=== PATIENT | female | born 1965 | race Caucasian/White ===

== ENCOUNTER 2021-01-06 12:45 | Emergency (ER) | payer OTHER ==
[2021-01-06] MEDS ORDERED: FLUORESCEIN STRIPS 1 MG STRIP LEFT EYE STA (13:03)
[2021-01-06] MEDS ORDERED: PROPARACAINE 0.5% OPHTH DROPS 15 ML BTL LEFT EYE STA (13:03)
--- NOTE | 2021-01-06 13:37 | ED ---
General Adult HPI - General Chief complaint: Eye Problems Stated complaint: lt eye vision problem Time Seen by Provider: 01/06/21 13:03 Source: patient Mode of arrival: ambulatory Limitations: no limitations - History of Present Illness Initial comments: 55-year-old female without any significant past medical history presents to the emergency room for left sided blurry vision. Patient states 3 days ago she developed a revision in the left eye and a wedge-shaped from 9:00 to 12:00. She went to urgent care and was diagnosed with possible corneal abrasion, started on an antibiotic drops. Patient states that since that time and the blurriness has moved from 1:00 to 6 o'clock position. Patient denies any pain in the eye. Patient does wear contacts in that eye but has not worn them since Thursday. Patient denies any black curtains in the eye. States she can see through the blurry part but it is just not her normal vision. Denies headache.Patient has no other complaints at this time including shortness of breath, chest pain, abdominal pain, nausea or vomiting, headache, or visual changes. - Related Data Allergies Allergy/AdvReac Type Severity Reaction Status Date / Time Tetracyclines Allergy Unknown Verified 01/06/21 12:51 Review of Systems ROS Statement: Those systems with pertinent positive or pertinent negative responses have been documented in the HPI. ROS Other: All systems not noted in ROS Statement are negative. Past Medical History Past Medical History: No Reported History History of Any Multi-Drug Resistant Organisms: None Reported Past Surgical History: Orthopedic Surgery Past Psychological History: No Psychological Hx Reported Smoking Status: Former smoker Past Alcohol Use History: None Reported Past Drug Use History: None Reported General Exam Limitations: no limitations General appearance: alert, in no apparent distress Head exam: Present: atraumatic, normocephalic, normal inspection Eye exam: Present: normal appearance, PERRL, EOMI. Absent: scleral icterus, conjunctival injection, periorbital swelling Expanded Eyelids: Normal Inspection: Bilateral Pupils: Regular, Round: Bilateral Sclera/Conjunctival: Normal Inspection: Bilateral Visual acuity (R) = 20/: 30 Visual acuity (L) = 20/: 25 With correction: Yes IOP (R) in mmH IOP (L) in mmH IOP measured with: Tonopen ENT exam: Present: normal exam, mucous membranes moist Neck exam: Present: normal inspection, full ROM. Absent: tenderness Respiratory exam: Present: normal lung sounds bilaterally. Absent: respiratory distress, wheezes Cardiovascular Exam: Present: regular rate, normal rhythm, normal heart sounds Neurological exam: Present: alert Course Vital Signs 01/06/21 12:47 Temperature 98.2 F Pulse Rate 79 Respiratory 18 Rate Blood Pressure 167/89 O2 Sat by Pulse 98 Oximetry Medical Decision Making - Medical Decision Making Vitals are stable. Patient is well-appearing. Visual mckeon are intact however patient blurry vision. I did stain the eye with fluorescein stain individuals with the Wood's lamp. No evidence of corneal abrasion. Intraocular pressure 22 in the right eye, 18 in the left eye. Visual acuity 20/25 in the left eye. I did call Dr. Nassar who states he will see patient tomorrow morning. Discussed with the patient and she is agreeable. She will return here overnight if she has any worsening symptoms. Disposition Clinical Impression: Blurry vision, left eye Disposition: HOME SELF-CARE Condition: Good Instructions (If sedation given, give patient instructions): Blurred Vision (ED) Additional Instructions: Please follow up with Dr Nassar by calling first thing in the morning. Make sure you tell the office staff you were seen in the emergency department and Dr. Nassar specifically stated he wants to fit you into the schedule tomorrow. If you have any worsening symptoms return to the emergency room. Is patient prescribed a controlled substance at d/c from ED?: No Referrals: Jazz Christina DO [Primary Care Provider] - 1-2 days Luis Miguel Nassar MD [STAFF PHYSICIAN] - 1-2 days Time of Disposition: 14:14
[2021-01-06 14:31] VITALS: BP 144/95; PULSE 69; RESP 20; TEMP 98.5
== END 2021-01-06 14:31 | disposition home or self-care (01) ==
LOC: EC 12:45
DX: H53.8 Other visual disturbances (principal); Z88.1 Allergy status to other antibiotic agents; Z87.891 Personal history of nicotine dependence
CPT/HCPCS: 99283

== ENCOUNTER 2021-01-28 13:16 | Emergency (ER) | payer OTHER ==
[2021-01-28 13:54] VITALS: RESP 18
[2021-01-28] MEDS ORDERED: ACETAMINOPHEN TAB 500 MG TAB PO STA (15:56)
[2021-01-28 15:58] VITALS: PULSE 74
[2021-01-28 16:08] LABS: Basophils # (A) 0.1 k/uL (0-0.2); Basophils % (A) 1 %; Eosinophils # (A) 0.1 k/uL (0-0.7); Eosinophils % (A) 1 %; HCT 45.5 % (34.0-46.0); HGB 15.7 gm/dL (11.4-16.0); Lymphocytes # (A) 1.7 k/uL (1.0-4.8); Lymphocytes % (A) 20 %; MCH 32.6 pg (25.0-35.0); MCHC 34.5 g/dL (31.0-37.0); MCV 94.7 fL (80.0-100.0); Mean Platelet Volume 7.2; Monocytes # (A) 0.3 k/uL (0-1.0); Monocytes % (A) 4 %; Neutrophils # (A) 6.1 k/uL (1.3-7.7); Neutrophils % (A) 73 %; Platelet Count 316 k/uL (150-450); RBC 4.81 m/uL (3.80-5.40); RDW 13.3 % (11.5-15.5); WBC 8.3 k/uL (3.8-10.6)
[2021-01-28 16:17] LABS: ALT 16 U/L (4-34); AST 22 U/L (14-36); African American GFR (CKD) >90 (>60 ml/min/1.73 sqM); Albumin 4.9 g/dL (3.5-5.0); Alkaline Phosphatase 57 U/L (38-126); Amylase 86 U/L (30-110); Anion Gap 11 mmol/L; Blood Urea Nitrogen 15 mg/dL (7-17); Calcium 10.2 mg/dL (8.4-10.2); Carbon Dioxide 26 mmol/L (22-30); Chloride 102 mmol/L (98-107); Glucose 112 mg/dL (74-99); Non-African American GFR(CKD) >90 (>60 ml/min/1.73 sqM); Potassium 4.4 mmol/L (3.5-5.1); Sodium 139 mmol/L (137-145); Total Bilirubin 0.4 mg/dL (0.2-1.3); Total Protein 7.4 g/dL (6.3-8.2)
--- NOTE | 2021-01-28 16:28 | CT ---
EXAMINATION TYPE: CT sinus wo con DATE OF EXAM: 01/28/2021 COMPARISON: NONE HISTORY: Retinal surgery 3-4 weeks ago. Left sided cheek, ear and frontal pain since. CT DLP: 470.9 mGycm. Automated Exposure Control for Dose Reduction was Utilized. TECHNIQUE: CT scan of the sinuses is performed without contrast, axial images are obtained, coronal r eformatted images are also reviewed. FINDINGS: The paranasal sinuses including the frontal, ethmoid, sphenoid, and maxillary sinuses bila terally are well-aerated without abnormal opacification or suspicious air-fluid levels. The ostiomea jose complex is patent bilaterally on the coronal images. The globes are intact bilaterally. Intraconal fat is preserved. Visualized portion of brain parenchym a is unremarkable. IMPRESSION: The sinuses are clear and the ostiomeatal complex is patent bilaterally.
--- NOTE | 2021-01-28 16:30 | CT ---
EXAMINATION TYPE: CT iac wo con DATE OF EXAM: 01/28/2021 COMPARISON: Same day CT sinus study HISTORY: Retinal surgery 3-4 weeks ago. Left sided cheek, ear and frontal pain since. CT DLP: 230.6 mGycm. Automated Exposure Control for Dose Reduction was Utilized. TECHNIQUE: CT scan of internal auditory canal is performed without contrast, thin cut axial images ar e obtained, coronal reformatted images are also reviewed. FINDINGS: The external auditory canals are patent bilaterally. Mastoid air cells show no evidence of abnormal opacification bilaterally. The middle ear ossicles are symmetric and unremarkable. There is no evidence of suspicious surroundi ng soft tissue density to suggest cholesteatoma. The scutum is preserved bilaterally. The cochlea and the semicircular canals are symmetric and within normal limits. Vestibular aqueduct and internal carotid canal appear unremarkable. Temporomandibular joints are maintained bilaterally. Visualized portion brain parenchyma is felt with in normal limits. IMPRESSION: No significant abnormality seen to account for patient's symptoms.
[2021-01-28 16:34] LABS: C Reactive Protein <0.5 mg/dL (<1.0)
--- NOTE | 2021-01-28 16:50 | ED ---
ENT HPI - General Chief complaint: ENT Stated complaint: head pressure & pain Source: patient Mode of arrival: ambulatory Limitations: no limitations - History of Present Illness Initial comments: 55-year-old female presents to the emergency room with reported left ear pain. She reports that she had a laser eye surgery done earlier this month for a partial retinal tear. States that shortly afterwards she began developing left- sided facial pain. The pain starts in the patient's left spiritism and radiates to her left ear. States that she has loud ringing in the left ear with pressure. She denies any visual changes. She was having floaters in the left eye prior to her surgery and states they have improved greatly. She denies any ocular pain. No fevers, chills or photophobia. No neck pain or stiffness. Also admits to left maxillary pain. See the dentist regularly. She denies sore throat. No chest pain or shortness of breath. She went to an urgent care and was placed on a steroid taper pack, amoxicillin, Flonase. States she is also been supplementing with Sudafed and Afrin. She denies any global headaches. No other alleviating, precipitating or modifying factors - Related Data Home Medications Medication Instructions Recorded Confirmed Amoxic-Pot Clav 875-125Mg 1 tab PO Q12H 01/28/21 01/28/21 [Augmentin 875-125] Fluticasone Nasal Condon [Flonase 2 spr EA NOSTRIL DAILY PRN 01/28/21 01/28/21 Nasal Condon] Loratadine 10 mg PO DAILY PRN 01/28/21 01/28/21 Oxymetazoline 0.05% Nasl Condon 2 spr EA NOSTRIL BID PRN 01/28/21 01/28/21 [Afrin 0.05% Nasal Condon] Pseudoephedrine [Sudafed] 30 - 60 mg PO Q4H PRN 01/28/21 01/28/21 predniSONE See Taper PO DAILY 01/28/21 01/28/21 Previous Rx's Medication Instructions Recorded Cyclobenzaprine [Flexeril] 10 mg PO TID PRN #15 tab 01/28/21 Allergies Allergy/AdvReac Type Severity Reaction Status Date / Time Tetracyclines Allergy Rash/Hives Verified 01/28/21 16:23 Review of Systems ROS Statement: Those systems with pertinent positive or pertinent negative responses have been documented in the HPI. ROS Other: All systems not noted in ROS Statement are negative. Past Medical History Past Medical History: No Reported History History of Any Multi-Drug Resistant Organisms: None Reported Past Surgical History: Orthopedic Surgery Additional Past Surgical History / Comment(s): EYE sx Past Psychological History: No Psychological Hx Reported Smoking Status: Former smoker Past Alcohol Use History: None Reported Past Drug Use History: None Reported General Exam Limitations: no limitations Course Vital Signs 01/28/21 01/28/21 01/28/21 13:50 15:57 17:33 Temperature 98.6 F 97.8 F Pulse Rate 95 74 74 Respiratory 18 18 18 Rate Blood Pressure 140/79 139/92 129/80 O2 Sat by Pulse 98 96 99 Oximetry Medical Decision Making - Medical Decision Making Upon arrival patient was placed into room 2. A thorough history and physical exam is performed. Patient is given Tylenol for pain control. Laboratory studies are conducted. She did go over for a CT of her internal auditory canal as well as her sinuses. Laboratory studies are reviewed and results are discussed with the patient. CT results also demonstrates no acute findings. The patient is reevaluated. I did discuss diagnosis, differential and treatment options. I believe the patient should follow-up with ENT at this time for further workup of her symptoms. Return to the emergency room for any new or worsening symptoms. She is given pain medication and a muscle relaxer for symptom control at home. Instructed not to take them both at the same time and separate them by approximally 8 hours. Patient agreed to the treatment plan and was discharged home in stable condition - Lab Data Result diagrams: 01/28/21 15:53 01/28/21 15:53 Lab Results 01/28/21 01/28/21 Range/Units 15:53 15:53 WBC 8.3 (3.8-10.6) k/uL RBC 4.81 (3.80-5.40) m/uL Hgb 15.7 (11.4-16.0) gm/dL Hct 45.5 (34.0-46.0) % MCV 94.7 (80.0-100.0) fL MCH 32.6 (25.0-35.0) pg MCHC 34.5 (31.0-37.0) g/dL RDW 13.3 (11.5-15.5) % Plt Count 316 (150-450) k/uL MPV 7.2 Neutrophils % 73 % Lymphocytes % 20 % Monocytes % 4 % Eosinophils % 1 % Basophils % 1 % Neutrophils # 6.1 (1.3-7.7) k/uL Lymphocytes # 1.7 (1.0-4.8) k/uL Monocytes # 0.3 (0-1.0) k/uL Eosinophils # 0.1 (0-0.7) k/uL Basophils # 0.1 (0-0.2) k/uL ESR 5 (0-20) mm/hr Sodium 139 (137-145) mmol/L Potassium 4.4 (3.5-5.1) mmol/L Chloride 102 (98-107) mmol/L Carbon Dioxide 26 (22-30) mmol/L Anion Gap 11 mmol/L BUN 15 (7-17) mg/dL Creatinine 0.69 (0.52-1.04) mg/dL Est GFR (CKD-EPI)AfAm >90 (>60 ml/min/1.73 sqM) Est GFR (CKD-EPI)NonAf >90 (>60 ml/min/1.73 sqM) Glucose 112 H (74-99) mg/dL Calcium 10.2 (8.4-10.2) mg/dL Total Bilirubin 0.4 (0.2-1.3) mg/dL AST 22 (14-36) U/L ALT 16 (4-34) U/L Alkaline Phosphatase 57 (38-126) U/L C-Reactive Protein <0.5 (<1.0) mg/dL Total Protein 7.4 (6.3-8.2) g/dL Albumin 4.9 (3.5-5.0) g/dL Amylase 86 (30-110) U/L Disposition Clinical Impression: Otalgia of left ear Disposition: HOME SELF-CARE Condition: Stable Instructions (If sedation given, give patient instructions): Earache (ED) Additional Instructions: Follow up with the ENT doctor for further evaluation within 1 week. Return to the emergency room for any new or worsening symptoms. Separate taking the tylenol 3 and muscle relaxers by 8 hours. Prescriptions: Cyclobenzaprine [Flexeril] 10 mg PO TID PRN #15 tab PRN Reason: Muscle Spasm Is patient prescribed a controlled substance at d/c from ED?: No Referrals: Jazz Christina DO [Primary Care Provider] - 1-2 days Low Guerra DO [Doctor of Osteopathic Medicine] - 1-2 days Time of Disposition: 17:15
[2021-01-28] MEDS ORDERED: ACET/COD 300 MG/30 MG STARTER PACK 6 TAB BTL PO STA (17:12)
[2021-01-28 17:24] LABS: Erythrocyte Sedimentation Rate 5 mm/hr (0-20)
[2021-01-28 17:36] VITALS: BP 129/80; TEMP 97.8
== END 2021-01-28 17:33 | disposition home or self-care (01) ==
LOC: EC 13:16
DX: H92.02 Otalgia, left ear (principal); Z87.891 Personal history of nicotine dependence
CPT/HCPCS: 36415; 70480; 70486; 80053; 82150; 85025; 85652; 86140; 99284